=== PATIENT | male | born 1935 | race Caucasian/White ===

== ENCOUNTER 2018-11-29 11:48 | Inpatient (IN) | payer OTHER ==
[~2018-11-29] VITALS: Ht 167.6 cm; Wt 68.0 kg
--- NOTE | 2018-11-29 11:48 | NUR ---
Patient SANJEEV TERRELL from [facility], transferred to bed 2. RN evaluating patient at bedside.
--- NOTE | 2018-11-29 11:49 | NUR ---
Dr. Adam evaluating patient at bedside.
--- NOTE | 2018-11-29 11:50 | NUR ---
PT [facility]UMBERTO BLS FROM SNF PRESENTS TO THE ED WITH C/O POOR PO INTAKE X4DAYS. PATIENT IS AOX4. PATIENT STATES THAT HE HAS NOT BEEN HUNGRY. DENIES PAIN, NAUSEA/VOMITING/DIARRHEA. RESPIRATIONS EVEN AND UNLABORED. HYPOACTIVE BOWEL SOUNDS NOTED. BED LOWERED WITH SIDE RAILS UP
[2018-11-29 11:56] VITALS: BP 124/46
[2018-11-29] MEDS ORDERED: VALP-22 PO (12:05)
[2018-11-29] MEDS ORDERED: MAGN400S60 PO (12:05)
[2018-11-29] MEDS ORDERED: DOCU-299 PO (12:05)
[2018-11-29] MEDS ORDERED: QUET25TA PO (12:05)
[2018-11-29] MEDS ORDERED: NACL 0.9% 1,000 ML IV SCH (12:12)
[2018-11-29] MEDS ORDERED: NACL 0.9% 1,000 ML IV ONE (12:12)
--- NOTE | 2018-11-29 12:32 | NUR ---
Dr. Ronaldo Bush evaluating patient at bedside.
[2018-11-29 12:50] LABS: BASOPHILS % (AUTO) 0.3 % (0.0-2.0); EOSINOPHILS # (AUTO) 0.3 K/uL (0-0.4); EOSINOPHILS % (AUTO) 2.9 % (0.0-4.0); HEMATOCRIT 38.7 % (36-52); HEMOGLOBIN 12.9 g/dL (12.0-18.0); LYMPHOCYTES # (AUTO) 0.7 K/uL (2.0-11.5); LYMPHOCYTES % (AUTO) 8.5 % (20.5-51.1); MEAN CORPUSCULAR HEMOGLOBIN 27 pg (27-31); MEAN CORPUSCULAR HGB CONC 33 g/dL (33-37); MEAN CORPUSCULAR VOLUME 80.7 fL (80-94); MONOCYTES # (AUTO) 0.7 K/uL (0.8-1.0); MONOCYTES % (AUTO) 8.1 % (1.7-9.3); NEUTROPHILS # (AUTO) 7.1 K/uL (1.8-7.7); NEUTROPHILS % (AUTO) 80.2 % (42.2-75.2); PLATELET COUNT (AUTO) 319 K/uL (140-450); RED CELL DISTRIBUTION WIDTH 13.5 % (11.6-13.7); WHITE BLOOD COUNT (AUTO) 8.8 K/uL (4.8-10.8)
[2018-11-29 12:56] LABS: ACETONE, SERUM NEGATIVE (NEGATIVE)
[2018-11-29 13:02] LABS: ANION GAP 10.7 (8-16); CARBON DIOXIDE 29.1 mmol/L (21-32); CHLORIDE 100 mmol/L (98-107); CREATININE 1.1 mg/dL (0.7-1.3); GLUCOSE 103 mg/dL (74-106); POTASSIUM 3.8 mmol/L (3.5-5.1); SODIUM SERUM 136 mmol/L (136-145); UREA NITROGEN, BLOOD 26 mg/dL (7-18)
[2018-11-29 13:13] LABS: ALBUMIN 2.9 g/dL (3.4-5.0); AMYLASE 62 U/L (25-115); ASPARTATE AMINOTRANSFERASE 93 U/L (15-37); LIPASE 248 U/L (73-393); MAGNESIUM 2.3 mg/dL (1.8-2.4); TOTAL BILIRUBIN 0.5 mg/dL (0.0-1.0)
[2018-11-29 13:31] LABS: URIC ACID 5.7 mg/dL (2.6-7.2)
[2018-11-29] MEDS ORDERED: MEDICATION REC. PHARMACY CONS. 1 EA MISC MC PRN (14:05)
[2018-11-29] MEDS ORDERED: MAGNESIUM HYDROXIDE 2400 MG/30 ML UDC PO PRN (14:05)
[2018-11-29] MEDS ORDERED: ACETAMINOPHEN 325 MG TAB PO PRN (14:05)
[2018-11-29] MEDS ORDERED: ONDANSETRON 4 MG/2 ML VIAL IM/IVP PRN (14:05)
[2018-11-29 15:27] LABS: PROTHROMBIN TIME 10.8 secs (10.8-13.4)
[2018-11-29 15:38] LABS: PHOSPHORUS 3.7 mg/dL (2.5-4.9); THYROID STIMULATING HORMONE 4.86 uIU/mL (0.34-3.74)
[2018-11-29 15:46] LABS: APPEARANCE,URINE SL CLOUDY (CLEAR); BILIRUBIN,URINE NEGATIVE (NEGATIVE); BLOOD, URINE 3+ (NEGATIVE); COLOR,URINE ORANGE (YELLOW); LEUKOCYTE ESTERASE ,URINE NEGATIVE (NEGATIVE); NITRITE, URINE NEGATIVE (NEGATIVE); UGLUCOSE NEGATIVE (NEGATIVE)
[2018-11-29 15:48] LABS: RBC,URINE 20-50 /HPF (0-5); WBC,URINE 20-60 /HPF (0-5)
--- NOTE | 2018-11-29 16:20 | NUR ---
Patient will be admitted to care of DR MILTON . Admited to [facility]. Will go to room 121. Belongings list completed. Report to MADY AMAYA.
[2018-11-29 16:21] VITALS: BP 124/51
--- NOTE | 2018-11-29 16:21 | NUR ---
RECEIVED ENDORSEMENT FROM ER NURSE. PATIENT ARRIVED VIA GURNEY. PATIENT WAS ABLE TO AMBULATE WITH ASSISTANCE. AAOX1, RESPIRATIONS ARE EVEN AND UNLABORED ON ROOM AIR. LEFT AC 20 G INTACT, PATENT, AND INFUSING IVF. PATIENT DENIES ANY PAIN. PLAN OF CARE WAS REVIEWED WITH PATIENT. PATIENT NEEDS CONSTANT REMINDERS BUT VOICED UNDERSTANDING. SAFETY MEASURES IN PLACE, CALL LIGHT IS WITHIN REACH.
[2018-11-29] MEDS: NACL 0.9% 1,000 ML IV SCH (16:56)
--- NOTE | 2018-11-29 17:50 | NUR ---
PATIENT PULLED IV, BECAME VERY AGITATED AND ANXIOUS. HE HAD A OUTBURST OF ANGER AND ASKED TO SPEAK WITH DR. HE REFUSED IVF AND STATED HE WANTED TO LEAVE. DR. GRANDE WAS CALLED AND PATIENT CALMED DOWN. HE WAS MOVED ROOMS AND PATIENT IS NOW RESTING IN BED.
--- NOTE | 2018-11-29 18:16 | NUR ---
PATIENT REFUSED VALPROIC ACID AND QUETIAPINE, WHICH WAS ORDER PER DR. GRANDE AT THIS TIME. DR. GRANDE AT BEDSIDE WITH PATIENT. PER DR. GRANDE IF PATIENT BECOMES MORE AGITATED, ADMINISTER HALDOL IM, BUT FOR NOW JUST MONITOR.
[2018-11-29] MEDS ORDERED: HALOPERIDOL IM 5 MG/ML VIAL IM SCH (18:30)
--- NOTE | 2018-11-29 19:37 | NUR ---
ENDORSED PT TO RN CRISTA FOR CONTINUITY OF CARE. PT STABLE.
--- NOTE | 2018-11-29 19:39 | NUR ---
RECIEVED REPORT FROM AM SHIFT NURSE .PT IS AWAKE ,ALERT , A LITTLE BIT IRRITABLE BUT CAN FOLLOW SIMPLE COMMANDS NO SIGNS OF DISTRESS NOTED ON THIS TIME. REFUSED IV FLUID. IV SITE INTACT AND PATENT . BED IN LOW POSITION ,SIDERAILS UPX2 ,CALL LIGHT WITHIN REACH.WILL CONTINUE TO MONITOR.
[2018-11-29 20:00] VITALS: BP 115/58
--- NOTE | 2018-11-29 20:00 | NUR ---
SCHEDULED MEDICINES REFUSED. V/S SIGNS STABLE. SITTER IN PLACE.
[2018-11-29] MEDS: DOCUSATE SODIUM 100 MG GELCAP PO SCH (20:51)
[2018-11-29] MEDS: QUEtiapine FUMARATE 25 MG TAB PO SCH (20:52)
[2018-11-29] MEDS: VALPROIC ACID 250 MG/5 ML UDC PO SCH (20:52)
[2018-11-30] MEDS: NACL 0.9% 1,000 ML IV SCH ×2 (06:42→23:22)
[2018-11-30 07:45] LABS: BASOPHILS % (AUTO) 0.3 % (0.0-2.0); EOSINOPHILS # (AUTO) 0.2 K/uL (0-0.4); EOSINOPHILS % (AUTO) 3.1 % (0.0-4.0); HEMATOCRIT 33.7 % (36-52); HEMOGLOBIN 11.1 g/dL (12.0-18.0); LYMPHOCYTES # (AUTO) 0.6 K/uL (2.0-11.5); MEAN CORPUSCULAR HEMOGLOBIN 27 pg (27-31); MEAN CORPUSCULAR HGB CONC 33 g/dL (33-37); MEAN CORPUSCULAR VOLUME 81.1 fL (80-94); MONOCYTES # (AUTO) 0.7 K/uL (0.8-1.0); NEUTROPHILS # (AUTO) 6.3 K/uL (1.8-7.7); PLATELET COUNT (AUTO) 281 K/uL (140-450); RED BLOOD CELL COUNT(AUTO) 4.16 MIL/uL (4.20-6.10); RED CELL DISTRIBUTION WIDTH 13.2 % (11.6-13.7)
--- NOTE | 2018-11-30 07:46 | NUR ---
REPORT GIVEN TO MADY GARCIA FOR CONTINUITY OF CARE PT IN STABLE CONDITION.
--- NOTE | 2018-11-30 07:50 | NUR ---
RECEIVED BEDSIDE REPORT FROM DEVICE SALES CONSULTANT RN FOR CONTINUITY OF CARE. AOX 2. PT IS PLEASANT AND COOPERATIVE. PT IN STABLE CONDITION. NO C/O PAIN AND DISCOMFORT. RESPIRATIONS EVEN AND LUNG SOUNDS CTA. EQUAL AIR FLOW BILATERALLY. S1 AND S2 PRESENT, NO MURMURS. TACTIVE BS IN ALL QUADRANTS. SKIN INTACT. PT IS AMBULATORY WITH STANDBY ASSIST. NO IV SITE PRESENT. WILL OFFER TO PLACE NEW IV. ALL SAFETY PRECAUTIONS IN PLACE, WILL CONTINUE TO MONITOR. Addendum: 11/30/18 at 1213 by Ashley Wakefield Meng, RN SITTER AT BEDSIDE.
[2018-11-30 08:00] VITALS: BP 118/55
[2018-11-30 08:04] LABS: ANION GAP 10.6 (8-16); CARBON DIOXIDE 27.2 mmol/L (21-32); CHLORIDE 105 mmol/L (98-107); GLUCOSE 98 mg/dL (74-106); POTASSIUM 3.8 mmol/L (3.5-5.1); SODIUM SERUM 139 mmol/L (136-145); UREA NITROGEN, BLOOD 17 mg/dL (7-18)
[2018-11-30 08:11] LABS: PHOSPHORUS 2.9 mg/dL (2.5-4.9)
[2018-11-30 08:29] LABS: CHOL/HDL RATIO 5.3 (1-4.5)
[2018-11-30 08:33] LABS: LYMPHOCYTES % (AUTO) 7.5 % (20.5-51.1); MONOCYTES % (AUTO) 9.4 % (1.7-9.3); NEUTROPHILS % (AUTO) 79.7 % (42.2-75.2)
[2018-11-30] MEDS: LACTOBACILLUS RHAMNOSUS GG 1 EACH CAP PO SCH (09:28)
[2018-11-30] MEDS: DOCUSATE SODIUM 100 MG GELCAP PO SCH ×2 (09:28→20:48)
--- NOTE | 2018-11-30 09:29 | NUR ---
NEW IV PLACED RT UA #22G. CONNECTED TO IVF AND ADMINISTERED SCHEDULED ABX. ALSO ADMINISTERED SCHEDULED PO MEDS. PT IS CALM AND COOPERATIVE.
[2018-11-30 12:00] VITALS: BP 117/51
--- NOTE | 2018-11-30 12:13 | NUR ---
PT RESTING IN BED, NO S/S DISTRESS. ALL SAFETY PRECAUTIONS IN PLACE. SITTER AT BEDSIDE. WILL CONTINUE TO MONITOR.
--- NOTE | 2018-11-30 14:32 | NUR ---
PT RESTING IN BED WITH SITTING AT BEDSIDE. NO S/S DISTRESS. WILL CONTINUE TO MONITOR.
--- NOTE | 2018-11-30 15:00 | NUR ---
PATIENT REFUSING TO BE RE-CONNECTED TO IVF, AFTER BEING DISCONNECTED TEMPORARILY TO ALLOW PATIENT TO USE THE BATHROOM.
[2018-11-30 16:00] VITALS: BP 121/52
--- NOTE | 2018-11-30 18:18 | NUR ---
PT RESTING IN BED WITH NO C/O PAIN OR DISCOMFORT. SITTER AT BEDSIDE. WILL CONTINUE TO MONITOR.
--- NOTE | 2018-11-30 19:16 | NUR ---
ENDORSED POC TO EXECUTIVE CHAIRMAN RN. PT IN STABLE CONDITION.
--- NOTE | 2018-11-30 19:25 | NUR ---
RECEIVED BEDSIDE REPORT FROM DAY SHIFT NURSE. PATIENT IS AWAKE, ALERT, AND COOPERATIVE. RESPIRATION EVEN UNLABORED ON ROOM AIR. SKIN IS WARM AND DRY. IV PATENT AND INTACT. PATIENT ABLE TO MAKE NEEDS KNOWN AND AMBULATORY WITH ASSIST. SITTER AT BEDSIDE. PLAN OF CARE WAS DISCUSSED. ALL SAFETY MEASURES IN PLACE. BED IS AT LOW POSITION. CALL LIGHT WITHIN REACH. WILL CONTINUE TO MONITOR.
--- NOTE | 2018-11-30 20:00 | NUR ---
INITIAL ASSESSMENT DONE. PATIENT REFUSING TO BE RE-CONNECTED TO IVF. ENCOURAGED TO DRINK FLUIDS TO STAY HYDRATED. WILL CONTINUE TO MONITOR
--- NOTE | 2018-11-30 20:39 | NUR ---
PATIENT REFUSING TO TAKE HIS MEDS THAT IS SCHEDULED FOR TONIGHT. EDUCATED THE RISK AND BENEFITS OF IT X2 STILL REFUSED. DR. PINZON IS AWARE OF THE SITUATION. WILL CONTINUE TO MONITOR.
[2018-11-30] MEDS: VALPROIC ACID 250 MG/5 ML UDC PO SCH (20:49)
[2018-11-30] MEDS: QUEtiapine FUMARATE 25 MG TAB PO SCH (20:49)
--- NOTE | 2018-11-30 21:00 | NUR ---
PATIENT IN BED WATCHING TV RESPIRATION EVEN UNLABORED ON ROOM AIR. NO DISTRESS NOTED. SITTER AT BEDSIDE. WILL CONTINUE TO MONITOR.
--- NOTE | 2018-11-30 23:00 | NUR ---
PATIENT SLEEPING COMFORTABLY. RESPIRATION EVEN UNLABORED ON ROOM AIR. NO DISTRESS NOTED. WILL CONTINUE TO MONITOR
--- NOTE | 2018-12-01 | NUR ---
PATIENT REFUSED VITALS TO BE TAKEN. EDUCATED THE RISK AND BENEFITS OF IT X2 STILL REFUSED.
--- NOTE | 2018-12-01 02:00 | NUR ---
CHECKED ON PATIENT. PATIENT IS ASLEEP RESPIRATION EVEN UNLABORED ON ROOM AIR. NO DISTRESS NOTED. WILL CONTINUE TO MONITOR.
--- NOTE | 2018-12-01 04:00 | NUR ---
PATIENT IS ASLEEP RESPIRATION EVEN UNLABORED ON ROOM AIR. NO DISTRESS NOTED. SITTER AT BEDSIDE. WILL CONTINUE TO MONITOR.
--- NOTE | 2018-12-01 05:29 | NUR ---
PATIENT REFUSED LAB DRAWN. EDUCATED THE RISK AND BENEFITS OF IT X2 STILL REFUSED.
--- NOTE | 2018-12-01 07:25 | NUR ---
BEDSIDE REPORT RECEIVED FROM DRUM DYEING MACHINE OPERATOR NURSE, PT IS ASLEEP. NO S/S OF ANY ACUTE DISTRESS OR SOB NOTED. PT IS ON ROOM AIR, SKIN INTACT. IV SITE NOTED ON THE L AC 20 G, INFUSING NS 60 ML/HR. PT IS ON FALL PRECAUTIONS, BUT IS ABLE TO AMBULATE WITH STANDBY ASSISTANCE. CALL LIGHT IS WITHIN REACH. WILL CONTINUE TO MONITOR.
--- NOTE | 2018-12-01 07:29 | NUR ---
ENDORSED PATIENT TO DAY SHIFT NURSE FOR CONTINUITY OF CARE. PATIENT IS STABLE AT THIS TIME.
[2018-12-01 08:00] VITALS: BP 126/46
[2018-12-01 08:01] LABS: EOSINOPHILS # (AUTO) 0.5 K/uL (0-0.4); EOSINOPHILS % (AUTO) 4.2 % (0.0-4.0); MEAN CORPUSCULAR HEMOGLOBIN 27 pg (27-31); RED CELL DISTRIBUTION WIDTH 13.3 % (11.6-13.7)
[2018-12-01 08:03] LABS: BASOPHILS % (AUTO) 0.2 % (0.0-2.0); HEMATOCRIT 37.3 % (36-52); HEMOGLOBIN 12.2 g/dL (12.0-18.0); LYMPHOCYTES # (AUTO) 1.6 K/uL (2.0-11.5); LYMPHOCYTES % (AUTO) 14.2 % (20.5-51.1); MEAN CORPUSCULAR HGB CONC 33 g/dL (33-37); MEAN CORPUSCULAR VOLUME 81.4 fL (80-94); MONOCYTES # (AUTO) 0.9 K/uL (0.8-1.0); MONOCYTES % (AUTO) 8.2 % (1.7-9.3); NEUTROPHILS # (AUTO) 8.5 K/uL (1.8-7.7); NEUTROPHILS % (AUTO) 73.2 % (42.2-75.2); PLATELET COUNT (AUTO) 340 K/uL (140-450); RED BLOOD CELL COUNT(AUTO) 4.58 MIL/uL (4.20-6.10); WHITE BLOOD COUNT (AUTO) 11.6 K/uL (4.8-10.8)
[2018-12-01 08:24] LABS: CARBON DIOXIDE 29.4 mmol/L (21-32); CHLORIDE 103 mmol/L (98-107); GLUCOSE 95 mg/dL (74-106); POTASSIUM 3.4 mmol/L (3.5-5.1); SODIUM SERUM 138 mmol/L (136-145); UREA NITROGEN, BLOOD 12 mg/dL (7-18)
[2018-12-01] MEDS: DOCUSATE SODIUM 100 MG GELCAP PO SCH ×2 (09:00→21:00)
[2018-12-01] MEDS: LACTOBACILLUS RHAMNOSUS GG 1 EACH CAP PO SCH (09:00)
[2018-12-01 09:23] LABS: MAGNESIUM 2.3 mg/dL (1.8-2.4); PHOSPHORUS 3.4 mg/dL (2.5-4.9)
[2018-12-01] MEDS ORDERED: POTASSIUM CHLORIDE 10 MEQ TABER PO SCH (09:40)
--- NOTE | 2018-12-01 09:48 | NUR ---
PT REFUSING TO TAKE HIS SCHEDULED AM MEDS. DR GRANDE WAS NOTIFIED AND SHE CAME DOWN TO TALK TO THE PT PERSONALLY. WILL TRY TO CONVINCE PT TO TAKE HIS MEDICINE AT A LATER TIME.
--- NOTE | 2018-12-01 10:35 | NUR ---
PT TOOK THE ORDERED K-DUR 20 MEQ, AND IV ROCEPHIN IS HUNG AND DRIPPING. PT IS CALM AND COOPERATIVE AT THIS TIME, NO S/S OF ANY DISTRESS.
[2018-12-01] MEDS ORDERED: cloNIDine 0.1 MG TAB PO PRN (11:35)
--- NOTE | 2018-12-01 12:50 | NUR ---
PT SEEN BY DR SOLITARIO
--- NOTE | 2018-12-01 13:02 | NUR ---
PT HAS BEEN HAVING A LOW APPETITE AND ONLY ATE THE FRUIT CUP AND DRANK THE MILK FROM HIS LUNCH TRAY. HE STATES TO "LET SOMEONE WHO IS HUNGRY" TO EAT HIS LUNCH.
--- NOTE | 2018-12-01 13:38 | NUR ---
PATIENT HAS BEEN SCREENED AND CATEGORIZED HIGH NUTRITION RISK. PATIENT WILL BE SEEN WITHIN 1-2 DAYS OF ADMISSION. 11/30/18 - 12/01/18 JERARDO FARFAN MBA, RD
[2018-12-01 16:00] VITALS: BP 117/46
[2018-12-01] MEDS: NACL 0.9% 1,000 ML IV SCH (16:02)
--- NOTE | 2018-12-01 17:53 | NUR ---
12/01/18 RD INITIAL ASSESSMENT COMPLETED PLEASE REFER TO NUTRITION ASSESSMENT UNDER CARE ACTIVITY FOR ESTIMATED NUTRITIONAL NEEDS. RD RECOMMENDATIONS: 1. RECOMMEND CONTINUE REGULAR DIET 2. ADD HEALTHSHAKES TID WITH MEALS 3. ENCOURAGE INCREASED PO INTAKE 4. F/U 2-3 DAYS; HIGH RISK JERARDO FARFAN MBA, RD
--- NOTE | 2018-12-01 18:49 | NUR ---
PT RESTING COMFORTABLY IN BED, IV NS INFUSING WITHOUT ANY ISSUES.
--- NOTE | 2018-12-01 19:18 | NUR ---
MADE DAYSHIFT MADY SHRESTHA AWARE OF PATIENT REMOVING IV. CANULA INTACT. NO SIGNS OF DISTRESS NOTED. EXPLAINED TO PT THAT A NEW IV WOULD HAVE TO BE INSERTED AT A LATER TIME. PT REFUSED, STATED HE DID NOT NEED IT, THERE WAS NO POINT, HE DOESN'T TAKE MEDICATION. WILL CONTINUE TO MONITOR.
--- NOTE | 2018-12-01 19:20 | NUR ---
PT ENDORSED TO BOWLING BALL ASSEMBLER IN STABLE CONDITION.
--- NOTE | 2018-12-01 19:21 | NUR ---
RECEIVED BEDSIDE REPORT FROM DAY SHIFT RN. PT A/O X1 TO NAME. IS CONFUSED. ABLE TO MAKE NEEDS KNOWN. ROOM AIR. NO SIGNS OF DISTRESS. NO IV SITE CURRENTLY AT THE MOMENT. PT REMOVED IV PRIOR TO SHIFT CHANGE. SKIN INTACT. ABLE TO VOID. ABLE TO AMBULATE. FALL PRECAUTIONS IN PLACE FOR SAFETY MEASURES. BED IN LOWEST POSITION. CALL LIGHT WITHIN REACH. WILL CONTINUE TO MONITOR.
[2018-12-01] MEDS: QUEtiapine FUMARATE 25 MG TAB PO SCH (21:00)
[2018-12-01] MEDS ORDERED: DONEPEZIL 10 MG TAB PO SCH (21:00)
[2018-12-01] MEDS ORDERED: MIRTAZAPINE 15 MG TAB PO SCH (21:00)
--- NOTE | 2018-12-01 21:45 | NUR ---
PATIENT REFUSED ALL 2100 PO MEDS. EDUCATED ON EVERY MEDICATION. HE STATED THAT HE DOES NOT TAKE ANY MEDICATION. UNCOOPERATIVE. GOT UP IN BED QUICKLY ARCHED LEANED FORWARD NEAR MY FACE TO INTIMIDATE. CURSING IN HUNGARIAN. I EXPLAINED TO HIM THERE WAS NO REASON TO GET UPSET AND THAT I AM JUST HERE TO HELP HIM. BUT HE REMAINED ANGRY. HE DEMANDED I TURN OFF THE LIGHT AND LEAVE THE ROOM SO HE COULD WATCH HIS TV.
[2018-12-01] MEDS: VALPROIC ACID 250 MG/5 ML UDC PO SCH ×2 (21:56→21:58)
--- NOTE | 2018-12-01 22:35 | NUR ---
RESIDENT MADE AWARE OF PT REFUSING MEDS AND IV INSERTION.
--- NOTE | 2018-12-01 22:39 | NUR ---
RESIDENT CAME INTO ROOM TO EDUCATE PT TO TAKING MEDS. PT REFUSED.
[2018-12-02] VITALS: BP 121/52
--- NOTE | 2018-12-02 00:57 | NUR ---
PT SLEEPING IN BED. NO SIGNS OF DISTRESS OR DISCOMFORT NOTED. EASILY AROUSABLE TO NAME. WILL CONTINUE TO MONITOR.
--- NOTE | 2018-12-02 02:25 | NUR ---
SLEEPING IN BED NO SIGNS OF DISTRESS NOTED. WANTS TO BE LEFT ALONE TO SLEEP. EASILY AROUSABLE. CALL LIGHT WITHIN REACH. BED IN LOW POSITION. WILL CONTINUE TO MONITOR.
--- NOTE | 2018-12-02 05:30 | NUR ---
CONTINUOUS IMPROVEMENT FACILITATOR ATTEMPTED TO DRAW BLOOD. PT UNCOOPERATIVE AND REFUSED BLOOD DRAW. DEMANDED THE CONTINUOUS IMPROVEMENT FACILITATOR TO LEAVE AND NOT TO BOTHER HIM THIS MORNING. BED IN LOW POSITION. CALL LIGHT WITHIN REACH. WILL CONTINUE TO MONITOR.
--- NOTE | 2018-12-02 07:10 | NUR ---
BEDSIDE REPORT GIVEN TO DAY SHIFT RN. PT AWAKE A/O X2 ABLE TO MAKE NEEDS KNOWN. AMBULATORY. PT DENIES, PAIN. CALL LIGHT WITHIN REACH. NO SIGNS OF RESP DISTRESS. PT ENDORSED IN STABLE CONDITION.
--- NOTE | 2018-12-02 07:11 | NUR ---
RECEIVED REPORT FROM DECK MOLDER NURSE AT BEDSIDE FOR CONTINUITY OF CARE. PT IS AWAKE AND ORIENTED. PT IS AMBULATING FROM THE BATHROOM. SKIN INTACT. NO IV ACCESS. PULLED OUT YESTERDAY AND PT REFUSED ANOTHER IV ACCESS. MD AWARE. PER DECK MOLDER PT HAS BEEN REFUSING ALL MEDICATIONS. V/S WITHIN NORMAL RANGE. WILL CONTINUE TO MONITOR PT.
[2018-12-02 08:00] VITALS: BP 123/47
--- NOTE | 2018-12-02 08:30 | NUR ---
REFUSED MORNING MEDS. PER PT, PT DOES NOT TAKE ANY MEDICATIONS. WILL NOTIFY MD AND WILL CONTINUE TO MONITOR PT.
[2018-12-02] MEDS: NACL 0.9% 1,000 ML IV SCH (08:42)
[2018-12-02] MEDS: LACTOBACILLUS RHAMNOSUS GG 1 EACH CAP PO SCH (09:00)
[2018-12-02] MEDS: DOCUSATE SODIUM 100 MG GELCAP PO SCH (09:00)
[2018-12-02] MEDS ORDERED: DONE10TA10 PO (10:07)
[2018-12-02] MEDS ORDERED: MIRT15TA4 PO (10:07)
--- NOTE | 2018-12-02 10:10 | NUR ---
DC ORDER FROM DR GRANDE. WILL START DC PROCESS.
[2018-12-02 16:42] VITALS: BP 117/58
--- NOTE | 2018-12-02 16:46 | NUR ---
PER [facility], TRANSPORTATION WILL BE [facility]. AUTHORIZATION #[id number].
--- NOTE | 2018-12-02 16:53 | NUR ---
SPOKE TO STALIN CARMICHAEL VINING, LOANS OFFICER WILL BE AT 1999. PRIMARY RN MADE AWARE.
--- NOTE | 2018-12-02 16:53 | NUR ---
Rafael Luna at [facility] , patient is available to return to Room #:120B. Patient's accepting physician will be Dr. Bush and psychiatrist is Dr. Posey.
--- NOTE | 2018-12-02 17:30 | NUR ---
CALLED [facility] AND GAVE REPORT TO MADY DAVIS. D/C COMPLETED. CALLED CHERELLE, SON AND LEFT MESSAGE ON VM TO NOTIFY FAMILY OF TRANSFER BACK TO FACILITY. STEFFIIERE WILL BE HERE BY 1999 TO HOT PACKER PT. WILL ENDORSE TO ELECTRICAL LINEMAN NURSE.
--- NOTE | 2018-12-02 19:26 | NUR ---
ENDORSED PT TO THE PHARMACOLOGY ASSOCIATE NURSE. PT IS IN STABLE CONDITION.
--- NOTE | 2018-12-02 19:27 | NUR ---
RECEIVED BEDSIDE REPORT FROM JUNIOR MEDELLIN. A/O X1. CONFUSED. AWAKE AND ALERT. DISCUSSED PLAN OF CARE. EXPLAINED THAT HE WOULD BE TRANSFERRED AT 8PM. ABLE TO MAKE NEEDS KNOWN. DENIES PAIN. ROOM AIR. NO SIGNS OF RESP DISTRESS. EVEN CHEST RISE. PT DOES NOT HAVE AN IV SITE. SKIN IS INTACT. PT IS CONTINENT. NKA. FALL RISK PRECAUTIONS IN PLACE. YELLOW GOWN, YELLOW ARM BAND, YELLOW SOCKS, YELLOW FALL RISK SIGN AT DOOR. BED IN LOW POSITION. CALL LIGHT WITHIN REACH. WILL CONTINUE TO MONITOR.
--- NOTE | 2018-12-02 19:45 | NUR ---
PT TRANSPORTED BY [facility]. [facility]
== END 2018-12-02 19:45 | DRG 689 ==
LOC: MED 11:48 → MTU 14:02 → MMU 11-30 18:07 → MTU 11-30 19:08
PROVIDERS: ADMIT Family Medicine; ATTEND Family Medicine
DX: N39.0 Urinary tract infection, site not specified (principal); G93.41 Metabolic encephalopathy; E44.0 Moderate protein-calorie malnutrition; F03.90 Unspecified dementia, unspecified severity, without behavioral disturbance, psychotic disturbance, mood disturbance, and anxiety; I11.9 Hypertensive heart disease without heart failure; Z68.24 Body mass index [BMI] 24.0-24.9, adult; E07.9 Disorder of thyroid, unspecified; F31.9 Bipolar disorder, unspecified; E86.0 Dehydration; R74.0 Nonspecific elevation of levels of transaminase and lactic acid dehydrogenase [LDH]; K59.00 Constipation, unspecified; E02 Subclinical iodine-deficiency hypothyroidism; R31.9 Hematuria, unspecified; D64.9 Anemia, unspecified; D72.829 Elevated white blood cell count, unspecified; E87.6 Hypokalemia; Z91.19 Patient's noncompliance with other medical treatment and regimen
CPT/HCPCS: 36415; 71045; 80048; 80053; 81001; 82009; 82150; 83036; 83605; 83690; 83735; 83880; 84100; 84134; 84443; 84484; 84550; 85025; 85610; 85730; 87081; 87086; 93005; 96360; 99285; J0696; J7030; J7060

== ENCOUNTER 2019-05-21 21:13 | Emergency (ER) | payer OTHER ==
[~2019-05-21] VITALS: Ht 165.1 cm; Wt 72.6 kg
[~2019-05-21 21:13] MED LIST: DOCU-299 PO; DONE10TA10 PO; MAGN400S60 PO; MIRT15TA4 PO; QUET25TA PO; VALP-22 PO
--- NOTE | 2019-05-21 21:21 | NUR ---
PT BROUGHT TO BED 1 VIA LINA
--- NOTE | 2019-05-21 21:22 | NUR ---
83/M PRESENTED TO ED SANJEEV FROM [facility] FOR EVALUATION OF HEMATURIA X1 DAY W/ POSSIBLE SWELLING TO GENITAL AREA. EVEN UNLABORED BREATHING. CLEAR BILAT LUNG SOUNDS. NORMOACTIVE BOWEL SOUNDS. PT REPORTS URGENCY TO URINATE BUT UNABLE TO AT THIS TIME. NO PAIN REPORTED. ABLE TO AMBULATE. NO SIGNS OF DISTRESS NOTED. VSS. WILL CONTINUE TO MONITOR. PMH BIPOLAR, SCHIZOPHRENIA, DEMENTIA
[2019-05-21 21:30] VITALS: BP 105/70
[2019-05-21] MEDS ORDERED: cefTRIAXone 1,000 MG in LIDOCAINE MPF 1% 2.1 ML IM ONE (21:55)
--- NOTE | 2019-05-21 22:39 | NUR ---
SPOKE WITH DAUGHTER MINNA , SHE IS UNABLE TO PROVIDE TRANSPORT FOR PT BACK TO FACILITY.
[2019-05-21 22:45] VITALS: BP 111/73
--- NOTE | 2019-05-21 22:45 | NUR ---
Patient discharged with v/s stable. Written and verbal after care instructions given and explained. Patient alert, oriented and verbalized understanding of instructions. Wheel Chair Assisted with to longterm. All questions addressed prior to discharge. ID band removed. Patient advised to follow up with PMD. Rx of BACTRIM given. Patient educated on indication of medication including possible reaction and side effects. Opportunity to ask questions provided and answered. TRANSPORT BY [facility].
== END 2019-05-21 22:45 ==
LOC: MED 21:13
DX: N39.0 Urinary tract infection, site not specified (principal); R31.9 Hematuria, unspecified; R41.0 Disorientation, unspecified; F03.90 Unspecified dementia, unspecified severity, without behavioral disturbance, psychotic disturbance, mood disturbance, and anxiety; E03.9 Hypothyroidism, unspecified; Z79.899 Other long term (current) drug therapy
CPT/HCPCS: 81002; 96372; 99283; J0696; J2001

== ENCOUNTER 2019-05-29 16:08 | Inpatient (IN) | payer OTHER ==
[~2019-05-29] VITALS: Ht 177.8 cm; Wt 72.6 kg
[2019-05-29 16:08] VITALS: BP 137/48
[2019-05-29] MEDS ORDERED: ACET-2619 PO (16:59)
[2019-05-29] MEDS ORDERED: MIRT15TA PO (16:59)
[2019-05-29] MEDS ORDERED: VITD1000 PO (16:59)
--- NOTE | 2019-05-29 17:10 | NUR ---
# 14 FR Urinary catheter inserted utilizing sterile technique. Immediate return of 200 ml BROWW urine noted. Urine sample collected and sent to lab. Pt not tolerated procedure.
--- NOTE | 2019-05-29 17:12 | NUR ---
SANJEEV FROM [facility] C/O GENERALIZED WEAKNESS AND POOR ORAL INTAKE X2-3 DAYS. PATIENT CONFUSED, UNCOOPERATIVE UPON ASSESSMENT. HX BIPOLAR, SCHIZOPHRENIA, HYPOTHYROID
--- NOTE | 2019-05-29 17:13 | NUR ---
PT ABLE TO MOVE ALL 4 EXTREMETIES WITHOUT DIFFICULTY. PER FACILTY, WEAK TO AMBULATE. ABDOMEN IS SOFT AND ROUND. PT ALERT TO SELF. NO DISTRESS NOTED.
[2019-05-29 17:38] LABS: BASOPHILS # (AUTO) 0.1 K/uL (0.00-0.22); BASOPHILS % (AUTO) 0.5 % (0.0-2.0); EOSINOPHILS % (AUTO) 0.1 % (0.0-4.0); HEMATOCRIT 39.8 % (36-52); LYMPHOCYTES # (AUTO) 0.1 K/uL (2.0-11.5); LYMPHOCYTES % (AUTO) 0.9 % (20.5-51.1); MEAN CORPUSCULAR HEMOGLOBIN 26 pg (27-31); MEAN CORPUSCULAR HGB CONC 33 g/dL (33-37); MEAN CORPUSCULAR VOLUME 78.9 fL (80-94); MONOCYTES # (AUTO) 1.2 K/uL (0.8-1.0); MONOCYTES % (AUTO) 7.8 % (1.7-9.3); NEUTROPHILS # (AUTO) 14.1 K/uL (1.8-7.7); NEUTROPHILS % (AUTO) 90.7 % (42.2-75.2); PLATELET COUNT (AUTO) 226 K/uL (140-450); RED BLOOD CELL COUNT(AUTO) 5.05 MIL/uL (4.20-6.10); RED CELL DISTRIBUTION WIDTH 15.2 % (11.6-13.7); WHITE BLOOD COUNT (AUTO) 15.5 K/uL (4.8-10.8)
[2019-05-29 17:41] LABS: APPEARANCE,URINE CLEAR (CLEAR); BILIRUBIN,URINE 2+ (NEGATIVE); BLOOD, URINE 3+ (NEGATIVE); LEUKOCYTE ESTERASE ,URINE TRACE (NEGATIVE); NITRITE, URINE POSITIVE (NEGATIVE); PH,URINE 6.5 (5.0-9.0); UGLUCOSE TRACE (NEGATIVE)
[2019-05-29] MEDS ORDERED: NACL 0.9% 1,000 ML IV ONE (17:45)
[2019-05-29 17:48] LABS: COLOR,URINE BROWN (YELLOW)
[2019-05-29] MEDS ORDERED: VANCOMYCIN 1,000 MG in DEXTROSE 5% 250 ML IV ONE (17:55)
[2019-05-29] MEDS ORDERED: PIPERACILLIN/TAZOBACTAM 4.5 GM in DEXTROSE 5% 100 ML IV ONE (17:55)
[2019-05-29 18:00] LABS: RBC,URINE TOO NUMEROUS TO COUN /HPF (0-5); WBC,URINE 0-5 /HPF (0-5)
[2019-05-29 18:02] LABS: ASPARTATE AMINOTRANSFERASE 39 U/L (15-37); CHLORIDE 103 mmol/L (98-107); GLUCOSE 147 mg/dL (74-106); SODIUM SERUM 142 mmol/L (136-145); TOTAL BILIRUBIN 0.4 mg/dL (0.0-1.0)
[2019-05-29 18:07] LABS: CREATININE 15.8 mg/dL (0.7-1.3)
--- NOTE | 2019-05-29 18:21 | NUR ---
LAB AT BEDSIDE
--- NOTE | 2019-05-29 18:21 | NUR ---
# 16 FR Cisneros catheter with 10 ml utilizing sterile technique. Immediate return of 1000 ml BROWN urine noted. Bedside drainage bag placed below level of bladder. Urine sample collected and sent to lab.
[2019-05-29] MEDS ORDERED: PIPERACILLIN/TAZOBACTAM 2.25 GM VIAL IV ONE (18:22)
[2019-05-29] MEDS ORDERED: VANCOMYCIN 1,000 MG VIAL ONE (18:23)
[2019-05-29] MEDS ORDERED: HYDROcodone/APAP 7.5/325 MG 1 TAB PO PRN (18:45)
[2019-05-29] MEDS ORDERED: ACETAMINOPHEN 325 MG TAB PO PRN (18:45)
[2019-05-29] MEDS ORDERED: ONDANSETRON 4 MG/2 ML VIAL IM/IVP PRN (18:45)
[2019-05-29] MEDS ORDERED: DOCUSATE SODIUM 100 MG GELCAP PO PRN (18:45)
[2019-05-29] MEDS ORDERED: MORPHINE SULFATE 2 MG/ML SYR IVP PRN (18:45)
--- NOTE | 2019-05-29 18:46 | NUR ---
VITALS TAKEN, STABLE AT THIS TIME. ZOSYN STARTED IVPB
[2019-05-29] MEDS ORDERED: DEXTROSE 50% 50 ML SYR IVP ONE (18:50)
[2019-05-29] MEDS ORDERED: INSULIN REGULAR, HUMAN 100 UNIT/ML VIAL IVP ONE (18:50)
[2019-05-29 19:00] LABS: UREA NITROGEN, BLOOD 240 mg/dL (7-18)
--- NOTE | 2019-05-29 19:30 | NUR ---
Patient will be admitted to care of DR MILTON. Admited to TELE. Will go to room 123A. Belongings list completed. Report to VITO EARL. RUSTY STILL RUNNING DURING TRANSPORT. PT CONTINUES TO BEND ARM AT AC, INHIBITING FLUIDS FROM BEING ADMINISTERED PENDING CHENTE
[2019-05-29 19:35] VITALS: BP 130/62
--- NOTE | 2019-05-29 19:35 | NUR ---
RECIEVED PT. FROM ER / [facility] ,AAOX 1 TO 2 , POOR HISTORIAN , WITH HX OF DEMENTIA NID O2 SAT 98% , IV SITE INTACT AND PATENT , WITH STRUCTURAL BIOLOGIST, TRANSFER TO BED BY 3 PERSON BY MANUAL LIFT , SKIN INTACT , ADMISSION ASSESSMENT DONE , MRSA SPECIMEN COLLECTED AND SENT TO LAB . FALL RISK - PUT BED ALARM ON - ON FALL / SAFETY PRECAUTION PROTOCOL - CALL LIGHT WITHIN RISK .PLAN OF CARE DISCUSSED BUT POOR UNDERSTANDING DUE TO MENTAL STATUS. WILL CONT. TO MONITOR. Addendum: 05/30/19 at 0650 by Jenniffer Hayward RN WITH FC DRAINING BLOODY U.O - WILL CONT. TO MONITOR - V/S WNL.
[2019-05-29 19:42] LABS: MAGNESIUM 3.6 mg/dL (1.8-2.4); THYROID STIMULATING HORMONE 3.68 uIU/mL (0.34-3.74)
[2019-05-29] MEDS: NACL 0.9% 1,000 ML IV SCH (19:45)
[2019-05-29] MEDS ORDERED: ALBUTEROL SULFATE/IPRATROPIU 3 ML SOL IH PRN (20:05)
[2019-05-29 21:32] LABS: PROTHROMBIN TIME 12.1 secs (10.8-13.4)
[2019-05-29] MEDS: DONEPEZIL 10 MG TAB PO SCH (22:03)
[2019-05-29] MEDS: MIRTAZAPINE 15 MG TAB PO SCH (22:04)
[2019-05-29] MEDS ORDERED: SODIUM POLYSTYRENE 15 GM/60 ML UDBTL PO SCH (23:00)
--- NOTE | 2019-05-29 23:45 | NUR ---
DRUNK ONLY ABOUT 10ML OF KAYEXALATE -NODDING HIS HEAD NEGATIVELY SEEMS HE DON'T LIKE THE TASTE - TINA , CHARGE NURSE INFORMED.
[2019-05-30] VITALS: BP 112/65
--- NOTE | 2019-05-30 | NUR ---
MADE ROUNDS . NO SIGNS OF ACUTE DISTRESS NOTED AT THIS TIME . WILL CONT. TO MONITOR.
[2019-05-30] MEDS ORDERED: SODIUM POLYSTYRENE 15 GM/60 ML UDBTL PR SCH (00:30)
[2019-05-30] MEDS: DEXTROSE 50% 50 ML SYR IVP SCH (00:56)
[2019-05-30 01:15] LABS: ANION GAP 18.3 (8-16); CARBON DIOXIDE 21.4 mmol/L (21-32); CHLORIDE 114 mmol/L (98-107); GLUCOSE 139 mg/dL (74-106); POTASSIUM 4.7 mmol/L (3.5-5.1); SODIUM SERUM 149 mmol/L (136-145)
[2019-05-30 01:23] LABS: UREA NITROGEN, BLOOD 158 mg/dL (7-18)
[2019-05-30 01:24] LABS: CREATININE 8.3 mg/dL (0.7-1.3)
--- NOTE | 2019-05-30 02:00 | NUR ---
SLEEPING - CHEST RISE AND FALL EQUALLY - WILL CONT. TO MONITOR.
[2019-05-30] MEDS: NACL 0.9% 1,000 ML IV SCH (03:33)
[2019-05-30 04:00] VITALS: BP 121/63
--- NOTE | 2019-05-30 04:00 | NUR ---
MADE ROUND RESP. EVEN AND UNLABORED . WILL CONT. TI MONITOR - U.O - CLEAR.
[2019-05-30] MEDS ORDERED: PIPERACILLIN/TAZOBACTAM 3.375 GM in DEXTROSE 5% 50 ML IV SCH (05:00)
[2019-05-30] MEDS ORDERED: PIPERACILLIN/TAZOBACTAM 3.375 GM VIAL IV ONE (05:30)
--- NOTE | 2019-05-30 06:00 | NUR ---
MADE ROUNDS - SLEEPING - CHEST RISE AND FALL EQUALLY .
[2019-05-30 06:51] LABS: BASOPHILS % (AUTO) 0.3 % (0.0-2.0); EOSINOPHILS # (AUTO) 0.1 K/uL (0-0.4); EOSINOPHILS % (AUTO) 0.6 % (0.0-4.0); HEMATOCRIT 37.9 % (36-52); HEMOGLOBIN 12.5 g/dL (12.0-18.0); LYMPHOCYTES # (AUTO) 0.5 K/uL (2.0-11.5); MEAN CORPUSCULAR HEMOGLOBIN 26 pg (27-31); MEAN CORPUSCULAR HGB CONC 33 g/dL (33-37); MEAN CORPUSCULAR VOLUME 78.5 fL (80-94); MONOCYTES # (AUTO) 0.9 K/uL (0.8-1.0); NEUTROPHILS # (AUTO) 7.8 K/uL (1.8-7.7); PLATELET COUNT (AUTO) 197 K/uL (140-450); RED BLOOD CELL COUNT(AUTO) 4.83 MIL/uL (4.20-6.10); WHITE BLOOD COUNT (AUTO) 9.3 K/uL (4.8-10.8)
[2019-05-30 07:17] LABS: ANION GAP 12.7 (8-16); CARBON DIOXIDE 26.8 mmol/L (21-32); CHLORIDE 120 mmol/L (98-107); GLUCOSE 132 mg/dL (74-106); POTASSIUM 4.5 mmol/L (3.5-5.1); SODIUM SERUM 155 mmol/L (136-145)
[2019-05-30 07:22] LABS: UREA NITROGEN, BLOOD 121 mg/dL (7-18)
[2019-05-30 07:23] LABS: CREATININE 5.3 mg/dL (0.7-1.3); MAGNESIUM 3.1 mg/dL (1.8-2.4); PHOSPHORUS 4.1 mg/dL (2.5-4.9)
--- NOTE | 2019-05-30 07:30 | NUR ---
RECEIVED REPORT FROM NIGHT NURSE. PATIENT IS IN BED, ASLEEP, ABLE TO WAKE. RESPIRATION EVEN AND UNLABORED. NO S/S OF DISTRESS NOTED. IVF NS INFUSING AT 120ML/HR VIA PERIPHERAL IV TO LEFT AC. INTACT AND PATENT. IRIZARRY CATHETER INTACT AND DRAINING CLEAR YELLOW URINE. BED IN LOW POSITION. CALL LIGHT WITHIN REACH.
[2019-05-30 07:37] LABS: LYMPHOCYTES % (AUTO) 5.2 % (20.5-51.1); MONOCYTES % (AUTO) 10.1 % (1.7-9.3); NEUTROPHILS % (AUTO) 83.8 % (42.2-75.2)
[2019-05-30 08:00] VITALS: BP 103/75
[2019-05-30] MEDS: LACTOBACILLUS RHAMNOSUS GG 1 EACH CAP PO SCH (08:28)
[2019-05-30] MEDS: CHOLECALCIFEROL 1,000 IU TAB PO SCH ×2 (08:28→09:00)
[2019-05-30] MEDS ORDERED: NACL 0.45% 1,000 ML IV SCH (08:30)
[2019-05-30] MEDS: NACL 0.45% 1,000 ML IV SCH ×2 (08:44→18:00)
--- NOTE | 2019-05-30 08:50 | NUR ---
PATIENT IS CURRENTLY IN BED WITH HOB ELEVATED EATING BREAKFAST. NO S/S OF DISTRESS NOTED.
[2019-05-30] MEDS ORDERED: TAMSULOSIN 0.4 MG CAP PO SCH (09:45)
[2019-05-30] MEDS ORDERED: FINASTERIDE 5 MG TAB PO SCH (10:00)
--- NOTE | 2019-05-30 10:30 | NUR ---
AM MEDICATIONS GIVEN. IV ROCEPHIN STARTED ORDERED. PATIENT IS AWAKE AND VERBALLY RESPONSIVE. REQUIRES REORIENTATION TO STAFF AND HOSPITAL ENVIRONMENT. PATIENT REFUSED VITAMIN D, STATED "I SPIT IT OUT, I DON'T WANT THAT." EDUCATED PATIENT IN REGARDS TO HIS DIAGNOSIS AND TREATMENT. DENIES PAIN AT THIS TIME. NO S/S OF DISTRESS NOTED. IRIZARRY CATHETER INTACT AND DRAINING CHLOE URINE. BED ALARM ON FOR FALL PREVENTION.
[2019-05-30 11:59] VITALS: BP 131/55
--- NOTE | 2019-05-30 12:30 | NUR ---
PATIENT IS IN BED WITH HOB ELEVATED, HAVING LUNCH. NO S/S OF DISTRESS NOTED. IVF NS 0.45% INFUSING AT 120ML/HR AND TOLERATING WELL VIA PIV TO LAC. WILL CONTINUE TO MONITOR PATIENT.
[2019-05-30] MEDS ORDERED: PIPERACILLIN/TAZOBACTAM 2.25 GM in DEXTROSE 5% 50 ML IV SCH (13:00)
--- NOTE | 2019-05-30 14:06 | NUR ---
DC PLANNING 83 YRS OLD MALE ADMITTED FROM [facility] WITH A DX OF LORENZA,UTI AND PNA . PT HAS A HX OF DEMENTIA . AMBULATES WITH NO BEVERAGE SPECIALIST . CXRAY MILD BIBASILAR ATELECTASIS. ADMINISTERED IVF AND ZOSYN, UA AND BLOOD CULTURE SENT TO LAB, INSERTED IRIZARRY FOR RETENTION PT EVAL ORDERED, UROLOGIST CONSULT WITH DR JOHNNY BAHENA TO FOLLOW. Addendum: 06/02/19 at 1207 by Lauren Zazueta CM RECEIVED AN ORDER FOR DC BACK TO [facility] TODAY. CLINICALS FAXED TO [phone]. CONTACTED [facility] AT [phone], ABLE TO SPEAK TO ANDER. HE STATED [facility] ADMISSIONS IS NOT AVAILABLE AT THIS TIME. PROVIDED HIM OF MY CONTACT INFO. HE STATED HE WILL HAVE [facility] CALL ME BACK. SHRUTI WILL FOLLOW UP. Addendum: 06/02/19 at 1220 by Lauren Zazueta CM RECEIVED A CALL FROM PAVEL BAILEY OF [facility], SHE STATED TO FAX REFERRAL TO [phone]. REFERRAL SENT TO THE PROVIDED FAX NUMBER. Addendum: 06/02/19 at 1316 by Lauren Zazueta CM PER ANDER AT [facility], PATIENT WILL GO TO ROOM 120B UNDER DR. MILTON. CONTACTED [facility] REGARDING TRANSPORT AUTH, NO ANSWER. LEFT MESSAGE. CM TO FOLLOW UP. Addendum: 06/02/19 at 1503 by Lauren Zazueta CM RECEIVED A CALL FROM [facility]. SHE PROVIDED ME THE TRANSPORT AUTH [id number]. CONTACTED [facility] AT [phone], ABLE TO SPEAK TO BRYCE. PRACTICE NURSE WILL BE AT 1900. PRIMARY RN GENARO, CHARGE NURSE AND DR. RASMUSSEN MADE AWARE. CONTACTED PATIENT'S SON CHERELLE WHITTEN AT [phone], NO ANSWER. LEFT MESSAGE REGARDING PATIENT DISCHARGING BACK TO [facility]. [facility] ADMISSIONS AT [facility] INFORMED WITH THE PRACTICE NURSE TIME. NUMBER TO CALL FOR REPORT IS [phone] AND ASK TO BE CONNECTED TO [facility].
--- NOTE | 2019-05-30 14:30 | NUR ---
PATIENT IS AWAKE AND VERBALLY RESPONSIVE. REQUIRES REORIENTATION TO STAFF AND HOSPITAL ENVIRONMENT. DENIES PAIN AT THIS TIME. NO S/S OF DISTRESS NOTED. IRIZARRY CATHETER INTACT AND DRAINING DARK CHLOE URINE NOW. BED ALARM ON FOR FALL PREVENTION.
--- NOTE | 2019-05-30 15:30 | NUR ---
PATIENT REMAINS STABLE. PATIENT IS AWAKE AND VERBALLY RESPONSIVE. NO ACUTE S/S OF DISTRESS NOTED. IVF HALF NS INFUSING AT 120ML/HR AND TOLERATING WELL. IV INTACT AND PATENT TO LAC. IRIZARRY CATHETER INTACT AND DRAINING DARK CHLOE URINE. BED ALARM ON FOR FALL PREVENTION.
[2019-05-30 16:00] VITALS: BP 122/45
--- NOTE | 2019-05-30 16:26 | NUR ---
PATIENT HAS BEEN SCREENED AND CATEGORIZED HIGH NUTRITION RISK. PATIENT WILL BE SEEN WITHIN 1-2 DAYS OF ADMISSION. 05/30/19 - 05/31/19 JERARDO FARFAN MBA, RD
--- NOTE | 2019-05-30 18:22 | NUR ---
PATIENT IS AWAKE AND VERBALLY RESPONSIVE. HOB ELEVATED, EATING DINNER. NO ACUTE S/S OF DISTRESS NOTED. IVF HALF NS INFUSING AT 120ML/HR AND TOLERATING WELL. IV INTACT AND PATENT TO LAC. IRIZARRY CATHETER INTACT AND DRAINING DARK CHLOE URINE. BED ALARM ON FOR FALL PREVENTION. WILL ENDORSE TO NIGHT NURSE FOR CONTINUITY OF CARE. PATIENT IN STABLE CONDITION.
--- NOTE | 2019-05-30 19:20 | NUR ---
RECIEVE PT AAOX2 , WITH HX OF DEMENTIA NO SIGNS OF ACUTE DISTRESS NOTED AT THIS TIME , IV SITE INTACT AND PATENT , WITH FC DRAINING LIGHT BROWNISH U.O - NEPHRO MANAGER CREATIVE AWARED ABOUT THIS AM SHIFT NOD REPORTED TO ME. ON SAFETY / FALL PRECAUTION PROTOCOL - CALL LIGHT WITHIN REACH , BED ALARM ON . POC DISCUSSED BUT POOR UNDERSTANDING DUE TO MENTAL STATUS . WILL CONTINUE TO MONITOR.
[2019-05-30 20:00] VITALS: BP 117/65
[2019-05-30] MEDS: DONEPEZIL 10 MG TAB PO SCH (20:24)
[2019-05-30] MEDS: MIRTAZAPINE 15 MG TAB PO SCH (20:31)
--- NOTE | 2019-05-30 20:31 | NUR ---
RECEIVED PT ON ROOM AIR WITH SP02 96%, AND CLEAR BREATH SOUNDS. NO RESPIRATORY DISTRESS NOTED AT THIS TIME. PRN TX NOT GIVEN. PT WAS INFORMED TO CALL RN WHEN EXPERIENCING SOB. WILL CONTINUE TO MONITOR PT.
--- NOTE | 2019-05-30 22:30 | NUR ---
PULLED OUT IV CANNULLA , IV NEEDLE INTACT , MINIMAL BLEEDING.
--- NOTE | 2019-05-30 22:40 | NUR ---
REFUSED IV INSERTION , AB INITIO ETL DEVELOPER. - INFORMED CHARGE NURSE AND TINA VIZCAINO SAID IT'S OK. Addendum: 05/30/19 at 2244 by Jenniffer Hayward RN TINA SAID LET PT. REST FOR AWHILE AND TRY LATER .
[2019-05-31] VITALS: BP 112/60
[2019-05-31] MEDS: DEXTROSE 50% 50 ML SYR IVP SCH (00:17)
[2019-05-31] MEDS: NACL 0.45% 1,000 ML IV SCH ×4 (01:20→21:12)
[2019-05-31 04:00] VITALS: BP 111/59
--- NOTE | 2019-05-31 04:50 | NUR ---
PT REFUSED TO REINSERT IV LINE AND APPLY TELEMETRY. RESIDENT NOTIFIED EARLIER ,SHE SAID TRY LATER RN TRIED AGAIN AND PT REFUSED.I CALLED NOW AND SHE SAID THAT IS OK LET TRY IN AM.ASKED HER IF SHE WANTS TO CHANGE STATUS TO MS AND SHE SAID NO KEEP HIM TELE.SO PT HAS NO IV LINE AND HAS NO HEART MONITOR AT THIS TIME.
--- NOTE | 2019-05-31 06:00 | NUR ---
MADE ROUNDS , NO ACUTE DISTRESS NOTED AT THIS TIME . U.O STILL DARK BROWN , PT IS NOT TACHYCARDIC - INFORMED THE TINA ( DR OROPEZA) ABOUT IT .
[2019-05-31 06:40] LABS: BASOPHILS % (AUTO) 0.4 % (0.0-2.0); EOSINOPHILS # (AUTO) 0.3 K/uL (0-0.4); EOSINOPHILS % (AUTO) 3.7 % (0.0-4.0); HEMATOCRIT 35.2 % (36-52); HEMOGLOBIN 11.4 g/dL (12.0-18.0); LYMPHOCYTES # (AUTO) 0.9 K/uL (2.0-11.5); LYMPHOCYTES % (AUTO) 11.5 % (20.5-51.1); MEAN CORPUSCULAR HEMOGLOBIN 26 pg (27-31); MEAN CORPUSCULAR HGB CONC 33 g/dL (33-37); MONOCYTES # (AUTO) 1.1 K/uL (0.8-1.0); MONOCYTES % (AUTO) 13.2 % (1.7-9.3); NEUTROPHILS # (AUTO) 5.8 K/uL (1.8-7.7); NEUTROPHILS % (AUTO) 71.2 % (42.2-75.2); PLATELET COUNT (AUTO) 172 K/uL (140-450); RED CELL DISTRIBUTION WIDTH 15.1 % (11.6-13.7); WHITE BLOOD COUNT (AUTO) 8.2 K/uL (4.8-10.8)
[2019-05-31 06:58] LABS: ANION GAP 11.6 (8-16); CARBON DIOXIDE 26.1 mmol/L (21-32); CHLORIDE 118 mmol/L (98-107); CREATININE 1.2 mg/dL (0.7-1.3); GLUCOSE 102 mg/dL (74-106); POTASSIUM 4.7 mmol/L (3.5-5.1); SODIUM SERUM 151 mmol/L (136-145); UREA NITROGEN, BLOOD 37 mg/dL (7-18)
[2019-05-31 07:04] LABS: MAGNESIUM 2.5 mg/dL (1.8-2.4); PHOSPHORUS 1.9 mg/dL (2.5-4.9)
--- NOTE | 2019-05-31 07:36 | NUR ---
Received report from shift leader nurse. Pt is in stable condition. Call light in reach.
[2019-05-31 08:00] VITALS: BP 125/54
--- NOTE | 2019-05-31 08:00 | NUR ---
Pt refused to have his tele monitor today at 0800. Call light in reach.
[2019-05-31] MEDS ORDERED: SODIUM PHOS / POTASSIUM PHOS 1 PKT PDR PO ONE (08:05)
[2019-05-31] MEDS ORDERED: POTASSIUM PHOSPHATE 15 MM in NACL 0.9% 250 ML IV ONE (08:10)
[2019-05-31] MEDS ORDERED: POTASSIUM PHOSPHATE 15 MM in NACL 0.9% 250 ML IV SCH (09:00)
--- NOTE | 2019-05-31 10:00 | NUR ---
Pt is resting in bed in stable condition. Call light in reach.
[2019-05-31] MEDS: CHOLECALCIFEROL 1,000 IU TAB PO SCH (10:42)
[2019-05-31] MEDS: LACTOBACILLUS RHAMNOSUS GG 1 EACH CAP PO SCH (10:42)
[2019-05-31] MEDS: FINASTERIDE 5 MG TAB PO SCH (10:43)
[2019-05-31] MEDS: TAMSULOSIN 0.4 MG CAP PO SCH ×2 (10:44→21:08)
[2019-05-31 12:00] VITALS: BP 139/58
--- NOTE | 2019-05-31 13:00 | NUR ---
Discontinued Cisneros Catheter as per order. Noted with 1100 ml of urine in bag. Color was yellow brown in color. Pt tolerated well. Notified Dr. Costa.
--- NOTE | 2019-05-31 13:30 | NUR ---
Pt went to use restroom to use commode. Pt was in rest room for 20 minutes. Pt became combative when requested to come from restroom. Security was called. Pt was moved from restroom to bed without any incidence. Pt was cleaned and made to rest. Call light was in reach.
[2019-05-31 16:00] VITALS: BP 116/63
--- NOTE | 2019-05-31 16:00 | NUR ---
Pt is in bed in stable condition. Call light in reach.
--- NOTE | 2019-05-31 17:30 | NUR ---
Shift report given to roofing machine tender nurse. Pt is instable condition. Call light in reach. Addendum: 05/31/19 at 2019 by Jomar Ivy RN Shift report given at 0.
--- NOTE | 2019-05-31 18:00 | NUR ---
Pt is in bed in stable condition. Son by bedside. Call light in reach.
--- NOTE | 2019-05-31 19:00 | NUR ---
RECEIVED PT FROM DAY SHIFT NURSE AAOX3 NOT DISTRESS NOTED , RESTING ON BED , IV ON RT FA INFUSING WELL PT CONTINENT VOIDING WELL INITIAL ASSESSMENT DONE
[2019-05-31 20:00] VITALS: BP 147/73
[2019-05-31] MEDS: MIRTAZAPINE 15 MG TAB PO SCH (21:06)
[2019-05-31] MEDS: DONEPEZIL 10 MG TAB PO SCH (21:07)
--- NOTE | 2019-05-31 21:51 | NUR ---
PT IS REPOSITIONED Q2H AND ASSISTED WITH HS SNACK GOOD APPETITE
--- NOTE | 2019-05-31 22:45 | NUR ---
BLADDER SCAN [address] GRANDE WAS NOTIFY, PT IS TRYING TO VOID USING URINAL
[2019-06-01] VITALS: BP 149/50
--- NOTE | 2019-06-01 01:00 | NUR ---
PT SLEEPING NOT SIGN OD PAIN NOTED
--- NOTE | 2019-06-01 04:00 | NUR ---
SPOMGE BATH GIVEN , LINEN CHANGED REPOSITIONED
[2019-06-01 06:18] LABS: BASOPHILS % (AUTO) 0.3 % (0.0-2.0); EOSINOPHILS # (AUTO) 0.5 K/uL (0-0.4); EOSINOPHILS % (AUTO) 6.6 % (0.0-4.0); HEMATOCRIT 32.3 % (36-52); HEMOGLOBIN 10.6 g/dL (12.0-18.0); LYMPHOCYTES % (AUTO) 11.8 % (20.5-51.1); MEAN CORPUSCULAR HEMOGLOBIN 26 pg (27-31); MEAN CORPUSCULAR HGB CONC 33 g/dL (33-37); MEAN CORPUSCULAR VOLUME 79.6 fL (80-94); MONOCYTES # (AUTO) 0.8 K/uL (0.8-1.0); MONOCYTES % (AUTO) 9.8 % (1.7-9.3); NEUTROPHILS # (AUTO) 5.8 K/uL (1.8-7.7); NEUTROPHILS % (AUTO) 71.5 % (42.2-75.2); PLATELET COUNT (AUTO) 180 K/uL (140-450); RED BLOOD CELL COUNT(AUTO) 4.06 MIL/uL (4.20-6.10); RED CELL DISTRIBUTION WIDTH 15.3 % (11.6-13.7); WHITE BLOOD COUNT (AUTO) 8.2 K/uL (4.8-10.8)
[2019-06-01] MEDS: NACL 0.45% 1,000 ML IV SCH ×2 (06:58→18:31)
--- NOTE | 2019-06-01 07:05 | NUR ---
RECEIVED REPORT FROM NIGHTSHIFT NURSE AT BEDSIDE. PATIENT WAS ASLEEP IN BED UPON ARRIVAL. PATIENT RESPONDS TO VERBAL AND TACTILE STIMULI. ABLE TO MAKE NEEDS KNOWN. RESPIRATIONS EVEN AND UNLABORED WITH NO SOB OR RESPIRATORY DISTRESS. SKIN WARM AND DRY. NO CONCERNS OR COMPLAINTS AT THIS TIME. IV SITE R AC 20G, CLEAN, DRY AND INTACT WITH NO REDNESS OR INFILTRATING. SAFETY MEASURES: HOB ELEVATED, NON SKID SOCKS ON, BED IN LOWEST POSITION, CALL LIGHT WITHIN REACH, BED ALARM ACTIVATED, AND TELE MONITORS ATTACHED. WILL CONTINUE TO MONITOR WILL CONTINUE TO MONITOR
[2019-06-01 07:10] LABS: MAGNESIUM 1.9 mg/dL (1.8-2.4); PHOSPHORUS 2.3 mg/dL (2.5-4.9)
[2019-06-01 08:00] VITALS: BP 152/48
--- NOTE | 2019-06-01 08:30 | NUR ---
PATIENT WAS RESTING IN BED UPON ARRIVAL. NO CONCERNS AT THIS TIME. NO COMPLAINTS OF PAIN. RESPIRATIONS EVEN AND UNLABORED WITH NO SOB OR RESPIRATORY DISTRESS. SKIN WARM AND DRY TO TOUCH. SAFETY MEASURES: HOB ELEVATED, NON SKID SOCKS ON, BED IN LOWEST POSITION, CALL LIGHT WITHIN REACH, BED ALARM ACTIVATED, AND TELE MONITORS ATTACHED. WILL CONTINUE TO MONITOR WILL CONTINUE TO MONITOR
[2019-06-01 09:02] LABS: ANION GAP 13.8 (8-16); CARBON DIOXIDE 22.5 mmol/L (21-32); CHLORIDE 111 mmol/L (98-107); GLUCOSE 106 mg/dL (74-106); POTASSIUM 4.3 mmol/L (3.5-5.1); SODIUM SERUM 143 mmol/L (136-145); UREA NITROGEN, BLOOD 18 mg/dL (7-18)
[2019-06-01] MEDS: CHOLECALCIFEROL 1,000 IU TAB PO SCH (09:15)
[2019-06-01] MEDS: FINASTERIDE 5 MG TAB PO SCH (09:15)
[2019-06-01] MEDS: TAMSULOSIN 0.4 MG CAP PO SCH (09:15)
[2019-06-01] MEDS: LACTOBACILLUS RHAMNOSUS GG 1 EACH CAP PO SCH (09:15)
--- NOTE | 2019-06-01 09:18 | NUR ---
NUTRITIONAL INITIAL ASSESSMENT NOTE COMPLETED ON 05/30/[address] NOTE WILL BE FOUND ON PATIENTS PHYSICAL CHART UNDER MISCELLANEOUS. PATIENT WILL BE FOLLOWED UP 06/02/19, HIGH RISK.
--- NOTE | 2019-06-01 10:15 | NUR ---
PATIENT WAS LYING IN BED UPON ARRIVAL. PHYSICAL THERAPY CAME TO VISIT PATIENT. PT TOLERATED FAIRLY. NO CONCERNS AT THIS TIME. NO COMPLAINTS OF PAIN. RESPIRATIONS EVEN AND UNLABORED WITH NO SOB OR RESPIRATORY DISTRESS. SAFETY MEASURES: HOB ELEVATED, NON SKID SOCKS ON, BED IN LOWEST POSITION, CALL LIGHT WITHIN REACH, BED ALARM ACTIVATED, AND TELE MONITORS ATTACHED. WILL CONTINUE TO MONITOR WILL CONTINUE TO MONITOR
--- NOTE | 2019-06-01 11:00 | NUR ---
PATIENT IS RESTING IN BED. NO CONCERNS OR COMPLAINTS AT THIS MOMENT. ABLE TO MAKE NEEDS KNOWN. RESPIRATIONS EVEN AND UNLABORED WITH NO SOB OR RESPIRATORY DISTRESS. SKIN WARM AND DRY TO TOUCH. SAFETY MEASURES: HOB ELEVATED, NON SKID SOCKS ON, BED IN LOWEST POSITION, CALL LIGHT WITHIN REACH, BED ALARM ACTIVATED, AND TELE MONITORS ATTACHED. WILL CONTINUE TO MONITOR
--- NOTE | 2019-06-01 11:54 | NUR ---
* ST NOTE * Pt seen at bedside. Pt asleep upon entering room. Upon awakening, pt alert but moderately cooperative, appearing intermittently agitated and reporting c/o pain of which Nsg was notified. Bedside dysphagia and oral mechanism exams completed. See evaluation report for further details. Pt tolerating 0/1 alternating Po trials of regular solid bagel, demonstrating residue in oral cavity after PO intake and coughing immediately after PO intake as well. Pt tolerating 4/4 alternating PO trials of successive sips of thin liquid apple juice via a straw as well as 4/4 alternating Po trials of mechanical soft peaches via a spoon, all w/o s/s of aspiration or choking. Pt clearing oral cavity of residue utilizing alternating btwn solids & liquids technique as trained by clinician. Pt non-compliant w/aspiration precautions at time of evaluation 2/2 to pain, of which nsg was also notified. Pt and caregivers/Nsg Karissa and Abi education completed re: aspiration precautions and safe swallow compensatory strategies pt and caregivers/nsg could utilize to aid pt w/swallow function, w/pt indifferent but caregivers/Nsg Karissa and Abi verbalizing understanding and agreement w/clinician's recommendations. It is thus recommended pt's PO diet consistency be modified to mechanical soft-chopped textures w/thin liquids for all meals, w/pt indifferent but caregivers/Nsg Karissa and Abi agreeable. No further ST follow up recommended at this time. Pt and caregivers/Nsg Karissa and Abi education completed re: results of evaluation; benefits of abiding by recommended Po diet consistency and aspiration precautions; and prognosis for improvement; w/pt indifferent but caregivers/Nsg Karissa and Aib verbalizing understanding and agreement w/clinician's recommendations. Recommend: - PO DIET DOWNGRADE TO MECHANICAL SOFT-CHOPPED TEXTURES W/THIN LIQUIDS for all meals - MAINTAIN STRICT ASPIRATION PRECAUTIONS DURING PT'S PO INTAKE 2/2 TO PT'S NON-COMPLIANCE DURING EVALUATION - Pt may require assistance w/feeding - Feeder to SIT PT UP AT 80-90 DEGREE ANGLE DURING PO INTAKE; CUE/REMIND PT TO EAT/DRINK SLOWLY; TAKE SMALL BITES/SIPS; AND ALTERNATE BTWN SOLIDS & LIQUIDS No further ST follow up recommended at this time. NOMS Level 2 Time In/Out 11:15 - 11:45
--- NOTE | 2019-06-01 12:06 | NUR ---
PATIENT IS AWAKE IN BED. NO COMPLICATIONS OR CONCERNS AT THIS TIME. ABLE TO MAKE NEEDS KNOWN. NO COMPLAINTS OF PAIN AT THIS MOMENT. SAFETY MEASURES: HOB ELEVATED, NON SKID SOCKS ON, BED IN LOWEST POSITION, CALL LIGHT WITHIN REACH, BED ALARM ACTIVATED, AND TELE MONITORS ATTACHED. WILL CONTINUE TO MONITOR
--- NOTE | 2019-06-01 13:04 | NUR ---
PATIENT IS LYING AWAKE SEMI FOWLERS IN BED. ABLE TO MAKE NEEDS KNOWN. RESPIRATIONS EVEN AND UNLABORED. IV SITE CLEAN, DRY, AND INTACT. SAFETY MEASURES: HOB ELEVATED, NON SKID SOCKS ON, BED IN LOWEST POSITION, CALL LIGHT WITHIN REACH, BED ALARM ACTIVATED, AND TELE MONITORS ATTACHED. WILL CONTINUE TO MONITOR
[2019-06-01] MEDS ORDERED: SODIUM PHOS / POTASSIUM PHOS 1 PKT PDR PO SCH (13:55)
--- NOTE | 2019-06-01 14:10 | NUR ---
PATIENT IN BED RESTING ON HIS LEFT SIDE. ABLE TO MAKE NEEDS KNOWN. NO COMPLICATIONS AT THIS TIME. RESPIRATIONS EVEN AND UNLABORED. REPOSITIONED FOR COMFORT. WILL CONTINUE TO MONITOR
--- NOTE | 2019-06-01 15:03 | NUR ---
PATIENT IS ASLEEP IN BED. RESPONSIVE TO VERBAL AND TACTILE STIMULI. NO COMPLAINTS OF PAIN OR DISCOMFORT. RESPIRATIONS EVEN AND UNLABORED. SAFETY MEASURES: HOB ELEVATED, NON SKID SOCKS ON, BED IN LOWEST POSITION, CALL LIGHT WITHIN REACH, BED ALARM ACTIVATED, AND TELE MONITORS ATTACHED. WILL CONTINUE TO MONITOR
[2019-06-01] MEDS ORDERED: LORazepam 2 MG/ML VIAL IVP PRN (15:25)
[2019-06-01] MEDS ORDERED: LORazepam 2 MG/ML VIAL ONE (15:28)
[2019-06-01] MEDS ORDERED: HYDROmorphone 1 MG/ML AMP IVP SCH (15:30)
--- NOTE | 2019-06-01 16:26 | NUR ---
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 I asked her if patient has an Advance Directive, she referred me to speak with someone from their medical records department. I spoke with Nerissa from medical records at [facility], she stated patient does not have an Advance Directive.
--- NOTE | 2019-06-01 17:15 | NUR ---
PATIENT IS ASLEEP IN BED. RESPONSIVE TO VERBAL AND TACTILE STIMULATION. NO COMPLAINTS OF PAIN OR DISCOMFORT. SKIN WARM AND DRY TO TOUCH. SAFETY MEASURES: HOB ELEVATED, NON SKID SOCKS ON, BED IN LOWEST POSITION, CALL LIGHT WITHIN REACH, BED ALARM ACTIVATED, AND TELE MONITORS ATTACHED. WILL CONTINUE TO MONITOR
--- NOTE | 2019-06-01 18:01 | NUR ---
PATIENT IS PEACEFULLY SLEEPING IN BED. RESPONSIVE TO VERBAL AND TACTILE STIMULATION. RESPIRATIONS EVEN AND UNLABORED WITH NO SOB OR RESPIRATORY DISTRESS. ABLE TO MAKE NEEDS KNOWN. NO COMPLAINTS OF PAIN. NO CONCERNS AT THIS TIME. SAFETY MEASURES: HOB ELEVATED, NON SKID SOCKS ON, BED IN LOWEST POSITION, CALL LIGHT WITHIN REACH, BED ALARM ACTIVATED, AND TELE MONITORS ATTACHED. WILL CONTINUE TO MONITOR
--- NOTE | 2019-06-01 19:34 | NUR ---
GAVE REPORT TO FINANCIAL SYSTEMS DIRECTOR NURSE FOR CONTINUITY OF CARE. PT IN STABLE CONDITION.
--- NOTE | 2019-06-01 19:35 | NUR ---
RECEIVED PT FROM HUBER RN PT IS AAOX3 IV ON RT ARM INFUSING WELL, IRIZARRY CATH DRAINING WELL NOT DISTRESS NOTED; AT THIS TIME INITIAL ASSESSMENT DONE
[2019-06-01 20:00] VITALS: BP 134/60
[2019-06-01] MEDS: SODIUM PHOS / POTASSIUM PHOS 1 PKT PDR PO SCH (21:05)
[2019-06-01] MEDS: DONEPEZIL 10 MG TAB PO SCH (21:05)
[2019-06-01] MEDS: MIRTAZAPINE 15 MG TAB PO SCH (21:06)
--- NOTE | 2019-06-01 22:00 | NUR ---
PT REPOSITIONED , SLEEPING WELL NOT DISTRESS NOTED IRIZARRY CATH DRAINING WELL DARK MARGUERITE COLOR URINE
[2019-06-02] VITALS: BP 127/47
--- NOTE | 2019-06-02 02:00 | NUR ---
PT AWAKE ON AND OFF , KPT DOES NOT COMPLAINT OF ANY DISCOMFORT AT THIS TIME REPOSITIONED Q2H
--- NOTE | 2019-06-02 04:00 | NUR ---
SPONGE BATH GIVEN LINEN CHANGED IRIZARRY CATH DRAINING WELL CHLOE COLOR, REPOSITIONED Q2H
[2019-06-02] MEDS: NACL 0.45% 1,000 ML IV SCH ×2 (04:11→11:40)
[2019-06-02 05:38] LABS: BASOPHILS % (AUTO) 0.5 % (0.0-2.0); EOSINOPHILS # (AUTO) 0.4 K/uL (0-0.4); EOSINOPHILS % (AUTO) 4.8 % (0.0-4.0); HEMATOCRIT 29.1 % (36-52); HEMOGLOBIN 9.5 g/dL (12.0-18.0); LYMPHOCYTES # (AUTO) 1.1 K/uL (2.0-11.5); LYMPHOCYTES % (AUTO) 13.1 % (20.5-51.1); MEAN CORPUSCULAR HEMOGLOBIN 26 pg (27-31); MEAN CORPUSCULAR HGB CONC 33 g/dL (33-37); MEAN CORPUSCULAR VOLUME 79.4 fL (80-94); MONOCYTES # (AUTO) 0.7 K/uL (0.8-1.0); MONOCYTES % (AUTO) 7.8 % (1.7-9.3); NEUTROPHILS # (AUTO) 6.4 K/uL (1.8-7.7); NEUTROPHILS % (AUTO) 73.8 % (42.2-75.2); PLATELET COUNT (AUTO) 174 K/uL (140-450); RED BLOOD CELL COUNT(AUTO) 3.66 MIL/uL (4.20-6.10); RED CELL DISTRIBUTION WIDTH 14.8 % (11.6-13.7); WHITE BLOOD COUNT (AUTO) 8.7 K/uL (4.8-10.8)
--- NOTE | 2019-06-02 06:35 | NUR ---
PT WILL BE ENDORSED TO DAY SHIFT NURSE FOR CONTINUE OF CARE
[2019-06-02 06:59] LABS: CARBON DIOXIDE 25.1 mmol/L (21-32); CHLORIDE 111 mmol/L (98-107); CREATININE 0.9 mg/dL (0.7-1.3); GLUCOSE 117 mg/dL (74-106); POTASSIUM 4.1 mmol/L (3.5-5.1); SODIUM SERUM 142 mmol/L (136-145); UREA NITROGEN, BLOOD 11 mg/dL (7-18)
[2019-06-02 07:04] LABS: MAGNESIUM 1.8 mg/dL (1.8-2.4); PHOSPHORUS 2.2 mg/dL (2.5-4.9)
--- NOTE | 2019-06-02 07:06 | NUR ---
RECEIVED BED SIDE REPORT FROM WINDOWS ADMIN NURSE. PATIENT IN STABLE CONDITION, NO DISTRESS NOTED. WILL CONTINUE TO FOLLOW UP.
[2019-06-02 08:00] VITALS: BP 99/76
[2019-06-02] MEDS ORDERED: TAMS0.4C96 PO (08:33)
[2019-06-02] MEDS ORDERED: FINA5TAB5 PO (08:33)
[2019-06-02] MEDS: FINASTERIDE 5 MG TAB PO SCH (09:39)
[2019-06-02] MEDS: SODIUM PHOS / POTASSIUM PHOS 1 PKT PDR PO SCH (09:39)
[2019-06-02] MEDS: LACTOBACILLUS RHAMNOSUS GG 1 EACH CAP PO SCH (09:40)
[2019-06-02] MEDS: CHOLECALCIFEROL 1,000 IU TAB PO SCH (09:40)
--- NOTE | 2019-06-02 09:45 | NUR ---
AT THE BEDSIDE WITH PATIENT, PATIENT IS CALM NO DISTRESS NOTED. SCHEDULED MEDICATIONS WERE GIVEN AT THIS TIME. WILL CONTINUE TO MONITOR.
--- NOTE | 2019-06-02 14:57 | NUR ---
PATIENT'S SON , CHERELLE AT BEDSIDE. NOTIFIED SON THAT PATIENT WAS BEING TRANSFERRED BACK TO [facility] LATER TODAY AT 1900 [address] BY [facility]. SON AND PATIENT VERBALIZED UNDERSTANDING. WILL CONTINUE TO MONITOR.
--- NOTE | 2019-06-02 15:53 | NUR ---
P.T. NOTES Pt WAS SEEN SLEEPY IN BED, WOKE UP W/ P.T., DECLINED TO PARTICIPATE W/ P.T. DUE TO LACK OF MOTIVATION & FATIGUE, Pt STATES HE FEELS TIRED & WANTS TO SLEEP, EXPLAINED BENEFITS OF THERAPY & RISKS OF BEDBOUND, Pt STILL REFUSED & IRRITABLE; REINFORCED USE OF SPIROMETER & HEP; CALL SHAH, PHONE, TABLE IN REACH, BED ALARM ON; FF UP WHEN PARTICIPATIVE.
[2019-06-02 16:00] VITALS: BP 134/54
--- NOTE | 2019-06-02 17:22 | NUR ---
TRANSFER NOTES-- CALLED [facility] [phone] Messi HILTON RN. ADVISED HER OF [facility] ARRIVAL OF [address] [place]. ADVISED YOBANI REGARDING PLAN OF CARE AND MEDIATIONS. ANSWERED ALL OF HER QUESTIONS. REPORTED LABS, RECENT VITAL SIGNS, STATUS. PATIENT WILL BE PREPARED FOR TRANSPORT.
--- NOTE | 2019-06-02 18:40 | NUR ---
[facility] HERE FOR TRANSPORT, PATIENT IN STABLE CONDITION. REPORT GIVEN TO [facility].
--- NOTE | 2019-06-02 18:50 | NUR ---
PATIENT TRANSFERRED TO [facility] AT THIS TIME IN STABLE CONDITION VIA [facility].
== END 2019-06-02 18:50 | DRG 871 ==
LOC: MED 16:08 → MTU 18:54
PROVIDERS: ADMIT Family Medicine; ATTEND Family Medicine
DX: A41.9 Sepsis, unspecified organism (principal); N17.0 Acute kidney failure with tubular necrosis; E43 Unspecified severe protein-calorie malnutrition; J98.11 Atelectasis; E87.0 Hyperosmolality and hypernatremia; N12 Tubulo-interstitial nephritis, not specified as acute or chronic; R65.20 Severe sepsis without septic shock; F20.9 Schizophrenia, unspecified; F03.90 Unspecified dementia, unspecified severity, without behavioral disturbance, psychotic disturbance, mood disturbance, and anxiety; R33.9 Retention of urine, unspecified; N40.0 Benign prostatic hyperplasia without lower urinary tract symptoms; E87.5 Hyperkalemia; E83.41 Hypermagnesemia; E83.39 Other disorders of phosphorus metabolism; F29 Unspecified psychosis not due to a substance or known physiological condition; N13.9 Obstructive and reflux uropathy, unspecified; Z68.23 Body mass index [BMI] 23.0-23.9, adult; Z79.899 Other long term (current) drug therapy; Z71.6 Tobacco abuse counseling
CPT/HCPCS: 36415; 51702; 71045; 74018; 76770; 80048; 80053; 81001; 82948; 83036; 83605; 83735; 83880; 84100; 84443; 84484; 85025; 85610; 85730; 87040; 87081; 87086; 92610; 93005; 97112; 97161-GP; 97530; 99285; J0696; J1170; J1815; J2060; J2543; J3370; J7030; J7060; Q0092